=== PATIENT | female | born 1975 | race Caucasian/White ===

== ENCOUNTER 2016-12-09 22:01 | Emergency (ER) | payer OTHER ==
[~2016-12-09] VITALS: Ht 152.4 cm; Wt 87.1 kg
[2016-12-09] MEDS ORDERED: ALBU1.25 INH (22:12)
[2016-12-09] MEDS ORDERED: PROA1AER INH (22:12)
[2016-12-09] MEDS ORDERED: NAPROXEN 250 MG TAB PO ONE (22:45)
[2016-12-09] MEDS ORDERED: NAPR500T PO (23:33)
[2016-12-09 23:40] VITALS: BP 130/76
[2016-12-09] MEDS ORDERED: NORCO 5/325MG TABLET (BULK FOR ED) PO ONE (23:45)
--- NOTE | 2016-12-10 07:59 | REP ---
Clinical: Trauma. Technique: AP, lateral, bilateral oblique views left foot . Findings: The osseous structures and joint spaces are intact and normal. There is no evidence for acute fracture or dislocation. Surrounding soft tissues are unremarkable. No subcutaneous emphysema or radiodense foreign body. Impression: Normal examination. No acute fracture or dislocation. Signed by Parveen Narvaez MD 12/10/2016 07:50 A
--- NOTE | 2016-12-10 08:01 | REP ---
Clinical: Trauma. Technique: AP, lateral, bilateral oblique views of the left ankle. Findings: Mild swelling is suggested. No obvious acute fracture or dislocation. Joint spaces and ankle mortise are intact. Impression: Mild swelling. No acute fracture. Signed by Parveen Narvaez MD 12/10/2016 07:52 A
== END 2016-12-10 00:10 | disposition home or self-care (01) ==
LOC: M ED 22:50
DX: S93.402A Sprain of unspecified ligament of left ankle, initial encounter (principal); S93.602A Unspecified sprain of left foot, initial encounter; W23.0XXA Caught, crushed, jammed, or pinched between moving objects, initial encounter; Y92.019 Unspecified place in single-family (private) house as the place of occurrence of the external cause; Y93.01 Activity, walking, marching and hiking; Y99.8 Other external cause status; Z88.6 Allergy status to analgesic agent

== ENCOUNTER 2017-03-29 17:58 | Emergency (ER) | payer OTHER ==
[~2017-03-29] VITALS: Ht 152.4 cm; Wt 87.9 kg
[~2017-03-29 17:58] MED LIST: ALBU1.25 INH; NAPR500T PO; PROAAER10 INH
[2017-03-29] MEDS ORDERED: CYCLOBENZAPRINE 10 MG TAB PO ONE (19:45)
[2017-03-29] MEDS ORDERED: KETOROLAC 60 MG/2 ML VIAL (J1885) IM ONE (19:45)
[2017-03-29] MEDS ORDERED: CYCL10TA PO (20:12)
[2017-03-29] MEDS ORDERED: NAPR500T6 PO (20:12)
[2017-03-29 20:17] VITALS: BP 112/56
--- NOTE | 2017-03-30 06:53 | REP ---
Right pelvis three views There is no acute fracture or dislocation. The joint spaces are normal in appearance. IMPRESSION: There is no acute fracture or dislocation. Signed by Alok Mcintosh MD 03/30/2017 08:14 A
== END 2017-03-29 20:18 | disposition home or self-care (01) ==
LOC: M ED 17:58
DX: R60.0 Localized edema (principal); S76.001A Unspecified injury of muscle, fascia and tendon of right hip, initial encounter; X50.9XXA Other and unspecified overexertion or strenuous movements or postures, initial encounter; Y92.019 Unspecified place in single-family (private) house as the place of occurrence of the external cause; Y93.89 Activity, other specified; Y99.8 Other external cause status; J45.909 Unspecified asthma, uncomplicated; F17.200 Nicotine dependence, unspecified, uncomplicated
CPT/HCPCS: 73502; 96372; 99282; J1885

== ENCOUNTER → 2017-04-29 | Outpatient (CLI) | payer OTHER ==
[~2017-04-29] MED LIST changes: +CYCL10TA PO; +NAPR500T6 PO
--- NOTE | 2017-05-03 12:05 | SLEEPCENT ---
DATE OF STUDY: 04/29/2017 ORDERED BY: Yue Oakes NP Nocturnal polysomnography was performed for evaluation of sleep apnea syndrome symptoms in this patient with a history of excessive somnolence and morning headaches and nonrestorative sleep. 9 hours and 4 minutes of data were reviewed. There were 415 minutes of sleep identified. Sleep latency was mildly prolonged at 18 minutes. Rapid eye movement (REM) latency more so prolonged at 164 minutes. Sleep architecture showed severe fragmentation. Progression was maintained. There were 3 REM periods appreciated. Overall sleep efficiency was 77.9%. EKG showed a sinus rhythm with premature ventricular contractions (PVCs), average heart rate 60 beats per minute. Rate variability was seen surrounding respiratory events. Rate ranged 42-80 beats per minute. EEG showed fairly normal wave forms for awake and sleep. No focal events were identified. There 99 respiratory events identified of 10 seconds in duration or greater for an apnea-hypopnea index of 14.3. The events were primarily obstructive, more frequent but not exclusive to supine posture, or associated with arousals 11 times per hour and oxygen desaturations into the low 80s. There was some activity in the limb leads as well, but limb movement arousals were few. Remaining measures of sleep physiology were reasonably normal. IMPRESSION: Obstructive sleep apnea syndrome (G47.33), apnea-hypopnea index 14.3. RECOMMENDATION: The patient should be encouraged to return to the sleep disorder center for pressure therapy in the interim. Alcohol and sedative avoidance should be practiced and caution exercised during the operation of motor vehicles.
== END ==
LOC: M SLEEP 19:24
PROVIDERS: ATTEND Nurse Practitioner Adult Health
DX: G47.33 Obstructive sleep apnea (adult) (pediatric) (principal)

== ENCOUNTER → 2017-05-17 | Outpatient (CLI) | payer OTHER ==
--- NOTE | 2017-05-21 09:11 | SLEEPCENT ---
DATE OF STUDY: 05/17/2017 ORDERING PROVIDER: Yue Oakes NP Nocturnal polysomnography was performed for the titration of pressure therapy in this patient with obstructive sleep apnea syndrome, apnea-hypopnea index of 14. For testing, a ResMed AirTouch F20 full face mask of medium size was used. 4 cm of water pressure were applied to the circuit, and the lights were extinguished. 7 hours and 56 minutes of data were reviewed. There were 418 minutes of sleep identified. Sleep latency was prolonged at 26 minutes. Rapid eye movement (REM) sleep was normal at 87 minutes. Sleep architecture was good with four REM periods appreciated. Overall sleep efficiency was 88.9%. The patient's electrocardiogram (EKG) showed a sinus rhythm with an average heart rate of 58 beats per minute. Electroencephalogram (EEG) showed normal waveforms for awake and sleep. Respiratory events were best palliated with continuous positive airway pressure (CPAP) at a pressure of +7. Minimal snoring was noted despite pressure therapy. There was some limb activity, but arousals from limb events were few. IMPRESSION: Obstructive sleep apnea syndrome (G47.33). RECOMMENDATION: Nightly use of pressure therapy 7 cm of water.
== END ==
LOC: M SLEEP 20:00
PROVIDERS: ATTEND Nurse Practitioner Adult Health
DX: G47.33 Obstructive sleep apnea (adult) (pediatric) (principal)

== ENCOUNTER 2018-08-18 20:45 | Emergency (ER) | payer OTHER ==
[2018-08-18 22:29] LABS: BASO # 0.1 10^3/uL (0.0-0.2); BASO % 0.9 % (0.0-1.0); EOS # 0.9 10^3/uL (0.0-0.50); EOS % 9.6 % (0.0-3.0); HEMATOCRIT 45.2 % (36.0-47.0); HEMOGLOBIN 15.1 g/dl (12.0-15.5); IMMATURE GRANULOCYTE % 0.5 % (0-3.0); LYMPH # 2.2 10^3/uL (1.5-4.5); LYMPH % 23.4 % (24.0-44.0); MEAN CORPUSCULAR HEMOGLOBIN 29.9 pg (27.0-33.0); MEAN CORPUSCULAR HGB CONC 33.4 g/dl (32.0-36.5); MEAN CORPUSCULAR VOLUME 89.5 fl (80.0-96.0); MONO # 0.7 10^3/uL (0.0-0.8); MONO % 7.3 % (0.0-5.0); NEUTROPHILS # 5.4 10^3/uL (1.8-7.7); NEUTROPHILS % 58.3 % (36.0-66.0); PLATELET COUNT, AUTOMATED 301 10^3/uL (150-450); RED BLOOD COUNT 5.05 10^6/uL (4.00-5.40); RED CELL DISTRIBUTION WIDTH 12.5 % (11.5-14.5); WHITE BLOOD COUNT 9.3 10^3/uL (4.0-10.0)
[2018-08-18 22:40] LABS: INR 0.89; PROTHROMBIN TIME 12.1 SECONDS (12.1-14.4)
[2018-08-18 22:41] LABS: PARTIAL THROMBOPLASTIN TIME 30.3 SECONDS (25.4-37.6)
[2018-08-18 22:43] LABS: D-DIMER QUANT 296.24 ng/ml (<500)
[2018-08-18 22:52] LABS: CONTROL LINE HCG INT CTR LINE PRESENT; HCG, SERUM QUALITATIVE NEGATIVE (NEGATIVE)
[2018-08-19] LABS: ANION GAP 8 MEQ/L (8-16); BLOOD UREA NITROGEN 19 MG/DL (7-18); CALCIUM LEVEL 8.5 MG/DL (8.5-10.1); CARBON DIOXIDE LEVEL 25 MEQ/L (21-32); CHLORIDE LEVEL 105 MEQ/L (98-107); CREATININE FOR GFR 0.76 MG/DL (0.55-1.30); GLOMERULAR FILTRATION RATE > 60.0 (>58); GLUCOSE, FASTING 84 MG/DL (70-100); SODIUM LEVEL 138 MEQ/L (136-145)
== END 2018-08-19 00:30 | disposition home or self-care (01) ==
LOC: M ED 08-19 00:30
DX: R07.89 Other chest pain (principal); F17.210 Nicotine dependence, cigarettes, uncomplicated; R00.1 Bradycardia, unspecified; M79.662 Pain in left lower leg; G35 Multiple sclerosis; J45.909 Unspecified asthma, uncomplicated; J44.9 Chronic obstructive pulmonary disease, unspecified; Z91.030 Bee allergy status; Z88.6 Allergy status to analgesic agent
CPT/HCPCS: 93005

== ENCOUNTER 2019-05-24 13:17 | Emergency (ER) | payer OTHER ==
[~2019-05-24] VITALS: Ht 152.4 cm; Wt 89.6 kg
[~2019-05-24 13:17] MED LIST changes: +IBUP80TA PO; +NAPR-837 PO; -NAPR500T PO
[2019-05-24] MEDS ORDERED: CYCLOBENZAPRINE 10 MG TAB PO ONE (14:30)
[2019-05-24] MEDS ORDERED: KETOROLAC TROMETHAMINE 10 MG TAB PO ONE (14:30)
[2019-05-24] MEDS ORDERED: CYCL10TA PO (14:31)
[2019-05-24] MEDS ORDERED: MOBI4TAB PO (14:31)
[2019-05-24 14:50] VITALS: BP 128/77
== END 2019-05-24 14:52 | disposition home or self-care (01) ==
LOC: M ED 13:17
DX: M54.41 Lumbago with sciatica, right side (principal); J45.909 Unspecified asthma, uncomplicated; J44.9 Chronic obstructive pulmonary disease, unspecified; R32 Unspecified urinary incontinence; F17.210 Nicotine dependence, cigarettes, uncomplicated; Z79.1 Long term (current) use of non-steroidal anti-inflammatories (NSAID); Z88.6 Allergy status to analgesic agent; Z91.030 Bee allergy status

== ENCOUNTER 2020-09-09 12:38 | Emergency (ER) | payer OTHER ==
[~2020-09-09] VITALS: Ht 152.4 cm; Wt 91.4 kg
[~2020-09-09 12:38] MED LIST changes: +CYCL-707 PO; -CYCL10TA PO; +MOBI4TAB PO
[2020-09-09 13:39] LABS: BLOOD UREA NITROGEN 12 MG/DL (7-18); CARBON DIOXIDE LEVEL 27 MEQ/L (21-32); CHLORIDE LEVEL 106 MEQ/L (98-107); CK-MB VALUE MASS 1.3 NG/ML (<3.6); CPK CREATINE PHOSPHOKINASE 102 U/L (26-192); CREATININE FOR GFR 0.83 MG/DL (0.55-1.30); GLOMERULAR FILTRATION RATE > 60.0 (>58); GLUCOSE, FASTING 89 MG/DL (70-100); MB/CK RELATIVE INDEX 1.27 (< OR =4); POTASSIUM SERUM 4.5 MEQ/L (3.5-5.1); SODIUM LEVEL 139 MEQ/L (136-145); TROPONIN I < 0.02 NG/ML (< 0.10)
[2020-09-09] MEDS ORDERED: ISOVUE-370 76% 100ML VIAL As Ordered ONE (13:43)
--- NOTE | 2020-09-09 13:45 | REP ---
INDICATION: CHEST PAIN COMPARISON: 09/01/2016 TECHNIQUE: Portable AP view of the chest FINDINGS: The mediastinum and cardiac silhouette are stable and within normal limits for portable technique. The lung morrow are clear without acute consolidation, effusion, or pneumothorax. Skeletal structures are intact. IMPRESSION: No acute cardiopulmonary process appreciated. <Electronically signed by Parveen Narvaez > 09/09/20 [id number]
--- NOTE | 2020-09-09 14:21 | REP ---
INDICATION: sob COMPARISON: None. TECHNIQUE: Axial contrast enhanced images from the thoracic inlet to the upper abdomen using pulmonary embolus technique with multiplanar re-formations. 75 ml Isovue 370 intravenous contrast material administered without complication. This CT examination was performed using the following dose reduction techniques: Automated exposure control, adjustment of mA and/or kv according to the patient's size, and use of iterative reconstruction technique. FINDINGS: Satisfactory enhancement of the pulmonary vasculature is achieved and no filling defects are identified to suggest pulmonary embolus. Further evaluation of the mediastinum demonstrates normal thoracic aorta, heart and pericardium. The bilateral lung morrow are well aerated and clear without consolidation pleural effusion or pneumothorax. Very minimal posterior basilar dependent changes are noted. Tracheobronchial tree is patent. No nodule or mass lesion is identified. No adenopathy noted. Surrounding musculoskeletal structures intact IMPRESSION: No evidence for pulmonary embolus. No acute mediastinal or pleural parenchymal process. <Electronically signed by Parveen Narvaez > 09/09/20 [id number]
[2020-09-09 14:24] LABS: BASO # 0.1 10^3/uL (0.0-0.2); BASO % 0.9 % (0.0-1.0); EOS # 0.5 10^3/uL (0.0-0.5); EOS % 5.9 % (0.0-3.0); HEMOGLOBIN 14.9 g/dl (12.0-15.5); LYMPH % 24.5 % (24.0-44.0); MEAN CORPUSCULAR HEMOGLOBIN 28.7 pg (27.0-33.0); MEAN CORPUSCULAR HGB CONC 32.4 g/dl (32.0-36.5); MEAN CORPUSCULAR VOLUME 88.5 fl (80.0-96.0); MONO # 0.5 10^3/uL (0.0-0.8); MONO % 5.8 % (0.0-5.0); NEUTROPHILS % 62.5 % (36.0-66.0); PLATELET COUNT, AUTOMATED 361 10^3/uL (150-450)
[2020-09-09 14:30] LABS: INR 0.91; PROTHROMBIN TIME 12.4 SECONDS (12.5-14.3)
[2020-09-09 14:32] LABS: ALBUMIN 3.7 GM/DL (3.2-5.2); ALT/SGPT 28 U/L (12-78); BILIRUBIN,DIRECT 0.1 MG/DL (0.0-0.2); BILIRUBIN,TOTAL 0.3 MG/DL (0.2-1.0); LIPASE 106 U/L (73-393); TOTAL PROTEIN 7.6 GM/DL (6.4-8.2)
[2020-09-09 14:39] VITALS: BP 137/74
--- NOTE | 2020-09-10 05:36 | ECGEPIP ---
[facility] - ED Test Date: 2020-09-09 Pat Name: KELLY LERNER Department: Room: - Gender: Female [employer] Designer: olga : 1975 Requested By: LOU POOL Order Number: [id number] Reading MD: Alejandro Singer Measurements Intervals [place] Rate: 65 P: 50 VT: 138 QRS: 4 QRSD: 82 T: 51 QT: 366 QTc: 382 Interpretive Statements SINUS RHYTHM POOR R WAVE PROGRESSION NONSPECIFIC T-WAVE ABNORMALITY SIMILAR TO 08/18/18 Electronically Signed on 09-10-2020 5:36:17 EST by Alejandro Singer
== END 2020-09-09 14:53 | disposition home or self-care (01) ==
LOC: M ED 12:38
DX: R09.1 Pleurisy (principal); J44.9 Chronic obstructive pulmonary disease, unspecified; F17.200 Nicotine dependence, unspecified, uncomplicated; Z79.899 Other long term (current) drug therapy
CPT/HCPCS: 36415; 71045; 71275; 80047; 80048; 80076; 82550; 82553; 83690; 85025; 85610; 93005; 99284; Q9967

== ENCOUNTER 2021-04-27 21:21 | Emergency (ER) | payer OTHER ==
[~2021-04-27] VITALS: Ht 152.4 cm; Wt 95.6 kg
[2021-04-27] MEDS ORDERED: NS 1,000 ML IV ONE (22:35)
[2021-04-27 23:09] LABS: BASO # 0.1 10^3/uL (0.0-0.2); BASO % 0.8 % (0.0-1.0); EOS # 0.6 10^3/uL (0.0-0.5); EOS % 5.6 % (0.0-3.0); HEMATOCRIT 41.9 % (36.0-47.0); LYMPH # 2.4 10^3/uL (1.5-5.0); LYMPH % 23.3 % (24.0-44.0); MEAN CORPUSCULAR HEMOGLOBIN 29.7 pg (27.0-33.0); MEAN CORPUSCULAR HGB CONC 33.4 g/dl (32.0-36.5); MONO # 0.9 10^3/uL (0.0-0.8); MONO % 8.4 % (2.0-8.0); NEUTROPHILS # 6.4 10^3/uL (1.5-8.5); NEUTROPHILS % 61.3 % (36.0-66.0); PLATELET COUNT, AUTOMATED 298 10^3/uL (150-450); RED BLOOD COUNT 4.71 10^6/uL (4.00-5.40); WHITE BLOOD COUNT 10.4 10^3/uL (4.0-10.0)
[2021-04-27 23:24] LABS: INR 0.95; PARTIAL THROMBOPLASTIN TIME 29.1 SECONDS (25.9-37.0); PROTHROMBIN TIME 13.1 SECONDS (12.7-14.5)
[2021-04-27 23:39] LABS: ALBUMIN 3.6 GM/DL (3.2-5.2); BILIRUBIN,DIRECT 0.1 MG/DL (0.0-0.2); BILIRUBIN,TOTAL 0.4 MG/DL (0.2-1.0); TOTAL PROTEIN 7.1 GM/DL (6.4-8.2)
[2021-04-27] MEDS ORDERED: ISOVUE-370 76% 100ML VIAL As Ordered ONE (23:47)
[2021-04-28] MEDS ORDERED: POTASSIUM CHLORIDE 10 MEQ SR TABLET PO ONE (00:10)
--- NOTE | 2021-04-28 00:52 | REPVR ---
PROCEDURE INFORMATION: Exam: CT Abdomen And Pelvis With Contrast Exam date and time: 04/27/2021 11:52 PM Age: 45 years old Clinical indication: Abdominal pain; Localized; Left lower quadrant (llq); Additional info: Llq pain/rectal bleeding TECHNIQUE: Imaging protocol: Computed tomography of the abdomen and pelvis with contrast. Radiation optimization: All CT scans at this facility use at least one of these dose optimization techniques: automated exposure control; mA and/or kV adjustment per patient size (includes targeted exams where dose is matched to clinical indication); or iterative reconstruction. Contrast material: ISOVUE 370; Contrast volume: 100 ml; Contrast route: INTRAVENOUS (IV); COMPARISON: CT ABD PELVIS WITH CONTRAST 03/04/2016 5:46 AM FINDINGS: Liver: Normal. No mass. Gallbladder and bile ducts: Status post cholecystectomy. No biliary ductal dilatation. Pancreas: Normal. No ductal dilation. Spleen: Normal. No splenomegaly. Adrenal glands: Normal. No mass. Kidneys and ureters: Normal. No hydronephrosis. Stomach and bowel: Unremarkable. No obstruction. No mucosal thickening. Negative for colonic diverticulitis. Appendix: Appendix is normal. Intraperitoneal space: Unremarkable. No free air. No significant fluid collection. Vasculature: Unremarkable. No abdominal aortic aneurysm. Lymph nodes: Unremarkable. No enlarged lymph nodes. Urinary bladder: Bladder is decompressed. Reproductive: Uterus is normal. Bones/joints: Mild degenerative spine. No acute fracture. Mild degenerative changes of the hips bilaterally. Soft tissues: Small umbilical hernia containing fat. There is no evidence of strangulation. IMPRESSION: 1. No CT findings to suggest source of left lower quadrant pain. 2. Bladder is decompressed. Evaluation of bladder is limited. Electronically signed by: Krystyna Baez On 04/28/2021 00:52:09 AM
[2021-04-28] MEDS ORDERED: PROC1CRE TOP (01:26)
[2021-04-28 01:43] VITALS: BP 132/71
== END 2021-04-28 01:44 | disposition home or self-care (01) ==
LOC: M ED 21:21
DX: K64.4 Residual hemorrhoidal skin tags (principal); H46.9 Unspecified optic neuritis; J44.9 Chronic obstructive pulmonary disease, unspecified; G47.33 Obstructive sleep apnea (adult) (pediatric); G35 Multiple sclerosis; F17.210 Nicotine dependence, cigarettes, uncomplicated; Z79.899 Other long term (current) drug therapy; Z98.890 Other specified postprocedural states; Z88.8 Allergy status to other drugs, medicaments and biological substances; Z80.0 Family history of malignant neoplasm of digestive organs; Z91.048 Other nonmedicinal substance allergy status
CPT/HCPCS: 74177; 80047; 80076; 83690; 85025; 85610; 85730; 86850; 86900; 86901; 87505; 96360; 96361; 99284; Q9967

== ENCOUNTER 2021-07-08 17:07 | Emergency (ER) | payer OTHER ==
[~2021-07-08] VITALS: Ht 152.4 cm; Wt 99.1 kg
[~2021-07-08 17:07] MED LIST changes: +PROC1CRE TOP
--- OUTSIDE RECORDS SUMMARY | 2021-07-08 17:13 | CCD ---
Clinical Summary - [facility] Created on: 05/22/2021 Leah Su External Reference #: [id number] : 1975 Sex: Female Author Author [employer] Organization [facility] Address [address] [place] [address] Phone Care Team Providers Care [employer] Rep[employer]r Name Role Phone Alan NAJERA, Ilir Unavailable [phone] Dragan BALLESTEROS, Lianet I Unavailable [phone] [place], Imaging Unavailable [phone] Charli Mustafa MD Unavailable [phone] Annelise NAJERA, Enrique Unavailable [phone] [facility] &, [facility] Unavailable [phone] Migel Angela MD Unavailable [phone] [facility], Radiology Unavailable [phone] Reason for Referral No Reason for Referral Recorded Reason for Visit and Chief Complaint Chart Update Problems Includes: Problems addressed during this encounter and other active Problems Current Visit Onset Date - Time Resolved Date - Time Provider C ondition Status Hiatal Hernia 05/22/2021 - 3:02PM Lianet Archibald NP Active Note: per EGD report 05/22/21 Past Visits Onset Date - Time Resolved Date - Time Provider Co ndition Status Edema 03/18/2021 - 10:52AM Lianet Archibald NP Active Note: dependent edema ankles Pleurisy 09/19/2020 - 2:51PM New Fox MD A ctive Note: - L lung, diagnosed Tendonitis Rotator Cuff 03/18/2019 - 12:00AM Donnareynaldo Dc DO Active Venous Insufficiency 03/18/2019 - 12:00AM Donnareynaldo Dc DO Active Intervertebral Disc Degeneration 01/31/2019 - 12:00AM Lianet Archibald NP Active Joint Derangement Pelvis / Hip 10/08/2018 - 12:00AM John GUZMAN Active Note: Unchanged Urinary Incontinence 10/08/2018 - 12:00AM Jenae GUZMAN Active Note: Unchanged Constipation 10/08/2018 - 12:00AM Jenae Lincoln ctive Note: Unchanged Lumbago 10/08/2018 - 12:00AM Jenae Lincoln ctive Note: Unchanged Multiple Sclerosis 10/08/2018 - 12:00AM Jenae GUZMAN Active Note: Unchanged Lumbar Radiculopathy 09/15/2018 - 12:00AM Lianet I Ca rnes HEMOTHERAPIST Active Vitamin D Deficiency 06/14/2018 - 12:00AM New brooke MD Active Note: Unchanged - Vitamin D level of 26 in May 2018. Impaired Fasting Glucose 06/09/2018 - 12:00AM New Fox MD Active Optic Neuritis 06/03/2018 - 12:00AM New Quigley Active Note: Right eye, May 2018 Internal Derangement Left Knee 10/14/2017 - 12:00AM Olivier Fox MD Active Atopic Dermatitis 05/21/2017 - 12:00AM New becerra MD Active Note: Unchanged Organic Sleep Apnea Obstructive 02/17/2017 - 12:00AM G zach Fox MD Active Note: Unchanged - Positive s leep study 29 Apr 2017. CPAP planned. Depression 02/13/2016 - 12:00AM Marva Lala HEMOTHERAPIST Act william Asthma 10/30/2015 - 12:00AM Marva Lala HEMOTHERAPIST Act william Essential Hypertriglyceridemia 10/30/2015 - 12:00AM Claudette Lala HEMOTHERAPIST Active Superficial Injury of Lower Limb Foreign Body 07/17/2015 - 12:00 AM Donna Dc DO Active Allergic Rhinitis 04/17/2014 - 12:00AM Marva Lala N P Active Note: Unchanged MENORRHAGIA PERIMENOPAUSAL 01/18/2014 - 12:00AM Jose Juan Packer MD Active Note: Unchanged Menses Abnormal 01/18/2014 - 12:00AM Jose Juan Packer MD Ac tive Note: Unchanged Nicotine Dependence 08/21/2012 - 12:00AM Lianet I Car davion HEMOTHERAPIST Active Note: Unchanged - 1/2 to 1 p pd. Esophageal Reflux 05/18/2012 - 12:00AM New becerra MD Active Obesity 05/18/2012 - 12:00ANAT Fox MD Active Note: 08/25 discussed 500 Ca l = 1 lb; 200 Quirino/day excess; goal 10-20 lb loss then sustain Plantar Fasciitis 05/18/2012 - 12:00AM Donna Dc DO Active Plan of Treatment Future Appointments Date Time Location Provider [facility] 09/18/2021 10:30AM [facility] Lianet Archibald NP Assessments Includes: Assessments from this encounterNo Assessments Recorded Instructions Includes: Instructions from this encounterNo Instructions Recorded Medical Equipment - Implanted Devices Includes: Current DevicesNo Medical Equipment Recorded Medications Includes: Medications discussed during this encounter and other current Medicati ons Discontinued / Stopped on this date [facility] Gastroenterology & on 03/22/2021 Omeprazole 40 MG Oral Capsule Delayed Release Provider: [facility] Gastroenterology & Diagnosis: Current Medications (continue as prescribed) Pantoprazole Sodium 40 MG Oral Tablet Delayed Release 2020 Provider: [facility] Gastroenterology & Diagnosis: Advair Diskus 100-50 MCG/DOSE Inhalation Aerosol Powde r Breath Activated 03/19/2021 - 09/15/2021 Provider: Lianet Archibald NP Diagnosis: Moderate persistent asthma, uncomplicated 1 puff BID and rinse after use Advair Diskus 100-50 MCG/DOSE Inhalation Aerosol Powde r Breath Activated 03/19/2021 Provider: Diagnosis: Moderate persistent asthma, uncomplicated 1 puff BID and rinse after use ProAir HFA 108 (90 Base) MCG/ACT Inhalation Aerosol Solution 03/18/2021 Provider: Lianet Archibald HEMOTHERAPIST Diagnosis: 2 puffs 4 times a day as needed for shortness of breath hydroCHLOROthiazide 12.5 MG Oral Tablet 03/18/2021 Provider: Lianet Archibald HEMOTHERAPIST Diagnosis: once a day [facility] Milk of Magnesia 400 MG/5ML Oral Suspension 12/31/2020 Provider: Diagnosis: EpiPen 2-Rufus 0.3 MG/0.3ML Injection Solution Auto-injector 0 12/31/2020 Provider: Lianet Archibald HEMOTHERAPIST Diagnosis: as directed Naproxen 500 MG Oral Tablet 09/19/2020 Provider: Neville GRIMMP Diagnosis: Pleurisy twice a day Montelukast Sodium 10 MG Oral Tablet 07/17/2020 Pro vider: New Fox MD Diagnosis: once a day Albuterol Sulfate 1.25MG/3ML Inhalation Nebulization solutio n 01/03/2019 Provider: New Fox MD Diagnosis: 1 vial per nebulizer inhaled 4 times per day as needed Medications Administered Includes: Administered Medications from this encounterNo Administered Medications Recorded Vital Signs Includes: Vital Signs from this encounterNo Vital Signs Recorded For Specified Dates Results Includes: Results discussed during this encounterNo Results Recorded For Specified Dates History of Present Illness Includes: History of Present Illness from this encounterNo History of Present Illness Recorded Social History No Social History Recorded - Smoking Status Unknown Procedures and Surgical History Includes: Procedures from this encounterNo Procedures For Specified Dates. No Surgical History Recorded Medical History Includes: Medical History addressed during this encounter Description Last Updated Colon polyps 05/22/2021 Hemorrhoids 05/22/2021 Family History Includes: Family History addressed during this encounterNo Family History Recorded Review of Systems Includes: Review of Systems from this encounterNo Review of Systems Recorded Mental Status Includes: Mental Status from this encounterNo Mental Status Recorded Functional Status Includes: Functional Status from this encounterNo Functional Status Recorded Physical Exam Includes: Physical Exam from this encounterNo Physical Exam Recorded Immunizations Includes: Immunizations addressed during this encounterNo Immunizations Recorded Allergies Includes: Active Allergies Substance Type Reaction Onset Date - Time Resolved Date - Ti me Status Bee Stings Allergy Asthma, Shortness of Breath 05/18/2012 - 12:00A M Active Aspirin Allergy vomiting 05/18/2012 - 12:00AM Acti ve Encounters Encounter Provider Location Date Check-In Time Check-Out Time D iagnosis Chart Update Lianet Archibald HEMOTHERAPIST 05/22/2021 2:50PM 11:59P M Insurance Includes: Active Insurance Policies Plan Name Member ID Group # Subscriber Relationship Effective Da tory 1 - Kp [id number] Leah J Su Self 2015 - Unknown 2 - [employer] Managed Medicaid [id number] Leah J Sosa ett Self 10/15/2015 - Unknown Advance Directives Includes: Current Advance Directives Directive Pat Aware Third Alliance Party Effective Date Reviewed Status RHIO Yes 12/14/2012 Current and Ve rified Note: 2-1- packet given Pt Bill of Rights, Priv Prac, Ad Dir Yes 12/31/2020 Current and Verified Note: Pt declined AD packet Ebola Screening Performed Yes 03/18/2021 Current and Verified Note: Within the last month, have you traveled outside of the [place]? - NO Health Concerns Includes: Health Concerns addressed during this encounterNo Active Health Concerns Recorded Goals Includes: Goals addressed during this encounterNo Active Goals Recorded Interventions Includes: Interventions addressed during this encounterNo Interventions Recorded Evaluations & Outcomes Includes: Evaluations & Outcomes addressed during this encounterNo Outcomes Recorded
--- OUTSIDE RECORDS SUMMARY | 2021-07-08 17:13 | CCD ---
Author Organization Unknown Address [address] [place] [address] Phone [phone] Care Team Providers Care Medical Transcription Editor Name Role Phone DAGO ZUÑIGA MD 3 [phone] Allergies Code Code System Name Reaction Severity Status Onset 1191 RxNorm Aspirin Vomiting Moderate Active Medications Name Status Start Date Stop Date albuterol sulfate 1.25 mg/3 mL solution for nebulization as needed Completed 08/23/2019 09/05/2020 albuterol sulfate 2.5 mg/3 mL (0.083 %) solution for nebulizatio n Completed 09/05/2020 albuterol sulfate HFA 90 mcg/actuation aerosol inhaler Active Not available baclofen 10 mg tablet Completed 12/03/2020 benzonatate 100 mg capsule Take 1 capsule 3 times a day by oral route. Completed 12/03/2020 ciprofloxacin 250 mg tablet Completed 08/14 clotrimazole 1 % topical cream Completed 10/24/2018 cyclobenzaprine 10 mg tablet TAKE ONE TABLET BY MOUTH THREE TIMES A DAY FOR MUSCLE SPASMS Active Not available docusate sodium 100 mg capsule Completed 10/24/2018 duloxetine 30 mg capsule,delayed release Completed 09/05/2020 duloxetine 60 mg capsule,delayed release TAKE ONE CAPSULE BY MOUTH EVERY DAY Completed epinephrine 0.3 mg/0.3 mL injection, aut o-injector USE DIRECTED Active Not available famotidine 40 mg tablet Active Not avai lable Flovent HFA 110 mcg/actuation aerosol in haler as needed Completed 12/03/2020 fluticasone 100 mcg-salmeterol 50 mcg/do se blistr powdr for inhalation INHALE ONE PUFF BY MOUTH TWICE A DAY RINSE MOUTH AFTER USE Active Not available fluticasone propionate 50 mcg/actuation nasal spray,suspension C ompleted 12/03/2020 gabapentin 300 mg capsule Completed 2019 GaviLyte-G 236 gram-22.74 gram-6.74 gram -5.86 gram oral solution USE DIRECTED BY [facility] Active Not available hydrochlorothiazide 12.5 mg capsule TAKE ONE CAPSULE BY MOUTH EVERY DAY Active Not available hydrocortisone 1 % topical cream with pe rineal applicator APPLY RECTALLY ONCE DAILY DIRECTED Active N ot available ibuprofen 800 mg tablet TAKE ONE TABLET BY MOUTH THREE TIMES A DAY Completed 12/03/2020 ketorolac 10 mg tablet Completed 9 Lidocaine Viscous 2 % mucosal solution Completed 12/03/2020 loratadine 10 mg tablet Completed 09/05/20 20 magnesium oxide 400 mg (241.3 mg magnesium) tablet Active Not available meloxicam 15 mg tablet Completed 9 meloxicam 7.5 mg tablet TAKE ONE TABLET BY MOUTH TWICE A DAY WITH FOOD Active Not available methocarbamol 500 mg tablet TAKE ONE TABLET BY MOUTH THREE TIMES A DAY NEEDED Completed 02/04/2021 methocarbamol 750 mg tablet TAKE ONE TABLET BY MOUTH THREE TIMES A DAY Active Not available montelukast 10 mg tablet Active Not jane ilable naproxen 500 mg tablet TAKE ONE TABLET BY MOUTH TWICE A DAY Completed nystatin 100,000 unit/mL oral suspension Active Not available omeprazole 20 mg capsule,delayed release TAKE ONE CAPSULE BY MOUTH EVERY DAY Active Not available oseltamivir 75 mg capsule twice daily Completed 12/03/2020 pantoprazole 40 mg tablet,delayed releas e TAKE ONE TABLET BY MOUTH TWICE A DAY Active No t available phenazopyridine 100 mg tablet Completed prednisone 10 mg tablet Completed 11/09/19 20 prednisone 20 mg tablet TAKE ONE TABLET BY MOUTH TWICE A DAY Completed ranitidine 300 mg tablet 1 tablet daily Completed 12/03/2020 sulfamethoxazole 800 mg-trimethoprim 160 mg tablet Completed 08/23/2019 tizanidine 4 mg tablet Completed 0 topiramate 25 mg tablet Completed 01/09/20 20 topiramate 50 mg tablet TAKE ONE TABLET BY MOUTH TWICE A DAY Completed Vitamin B-2 100 mg tablet TAKE 4 TABLETS BY MOUTH EVERY DAY Active Not a vailable Problems None recorded. Procedures Date Name Performed by Repair of Cleft Palate Information not a vailable Removal of Sebaceous Cyst Information no t available Results Lab Results Date Name Specimen Result Interpretation Description Value Range Status Address 09/21/2020 [facility] Pdf Report NOS No observation recorded. [facility]: [address] [facility], [place] 09/21/2020 SARS CoV 2 RNA (COVID-19), QL, linux admin-PCR, Respirat ory Specimen NOS Normal Sars-cov-2 negative negative Final [facility]: [address] [facility] [place] 04/20/2020 SARS CoV 2 RNA (COVID-19), QL, linux admin-PCR, Respiratory Specim en No observation recorded. [employer]: [address] [facility], [place] Past Encounters 06/10/2021 Lumbar Radiculopathy; Degeneration of Lumbar Intervertebral Disc; Displacement of Lumbar Intervertebral Disc without Myelopathy; Spondylosis without Myelopathy; Lumbosacral Spondylosis without Myelopathy; Myofascial Pain; Cervical Radiculopathy; Displacement of Cervical Intervertebral Disc without Myelopathy; Degeneration of Cervical Intervertebral Disc; Cervical Spondylosis without Myelopathy; Congenital Fusion of Spine; Inflammation of Sacroiliac Joint Mariah Vilalfuerte, SPECIAL PROCEDURES TECHNOLOGIST: [id number] [address], [place] [address], Ph. 05/02/2021 Lumbar Radiculopathy; Degeneration of Lumbar Intervertebral Disc; Displacement of Lumbar Intervertebral Disc without Myelopathy; Spondylosis without Myelopathy; Lumbosacral Spondylosis without Myelopathy; Myofascial Pain; Cervical Radiculopathy; Displacement of Cervical Intervertebral Disc without Myelopathy; Degeneration of Cervical Intervertebral Disc; Cervical Spondylosis without Myelopathy; Congenital Fusion of Spine; Inflammation of Sacroiliac Joint Mariah Villafuerte, SPECIAL PROCEDURES TECHNOLOGIST: [id number] [facility] [address], [place] [address], Ph. 03/19/2021 Lumbar Radiculopathy; Degeneration of Lumbar Intervertebral Disc; Displacement of Lumbar Intervertebral Disc without Myelopathy; Spondylosis without Myelopathy; Lumbosacral Spondylosis without Myelopathy; Myofascial Pain; Cervical Radiculopathy; Displacement of Cervical Intervertebral Disc without Myelopathy; Degeneration of Cervical Intervertebral Disc; Cervical Spondylosis without Myelopathy; Congenital Fusion of Spine; Inflammation of Sacroiliac Joint Mariah Villafuerte, SPECIAL PROCEDURES TECHNOLOGIST: [address] [address], [place] [address], Ph. 02/04/2021 Lumbar Radiculopathy; Degeneration of Lumbar Intervertebral Disc; Displacement of Lumbar Intervertebral Disc without Myelopathy; Spondylosis without Myelopathy; Lumbosacral Spondylosis without Myelopathy; Myofascial Pain; Cervical Radiculopathy; Displacement of Cervical Intervertebral Disc without Myelopathy; Degeneration of Cervical Intervertebral Disc; Cervical Spondylosis without Myelopathy; Congenital Fusion of Spine; Inflammation of Sacroiliac Joint Mariah Sabasdarinelshara Villafuerte, SPECIAL PROCEDURES TECHNOLOGIST: [address] [address], [facility] [place] [address], Ph. 12/31/2020 Lumbar Radiculopathy; Degeneration of Lumbar Intervertebral Disc; Displacement of Lumbar Intervertebral Disc without Myelopathy; Spondylosis without Myelopathy; Lumbosacral Spondylosis without Myelopathy; Myofascial Pain; Cervical Radiculopathy; Displacement of Cervical Intervertebral Disc without Myelopathy; Degeneration of Cervical Intervertebral Disc; Cervical Spondylosis without Myelopathy; Congenital Fusion of Spine; Inflammation of Sacroiliac Joint Mariah Bertrand Villafuerte, SPECIAL PROCEDURES TECHNOLOGIST: [address] [address], [place] [address], Ph. 12/03/2020 Lumbar Radiculopathy; Degeneration of Lumbar Intervertebral Disc; Displacement of Lumbar Intervertebral Disc without Myelopathy; Spondylosis without Myelopathy; Lumbosacral Spondylosis without Myelopathy; Myofascial Pain; Cervical Radiculopathy; Displacement of Cervical Intervertebral Disc without Myelopathy; Degeneration of Cervical Intervertebral Disc; Cervical Spondylosis without Myelopathy; Congenital Fusion of Spine; Inflammation of Sacroiliac Joint Mariah Sgarisshara Villafuerte, SPECIAL PROCEDURES TECHNOLOGIST: [id number] [address], [place] [address], Ph. 10/10/2020 Lumbar Radiculopathy; Degeneration of Lumbar Intervertebral Disc; Displacement of Lumbar Intervertebral Disc without Myelopathy; Spondylosis without Myelopathy; Lumbosacral Spondylosis without Myelopathy; Myofascial Pain; Cervical Radiculopathy; Displacement of Cervical Intervertebral Disc without Myelopathy; Degeneration of Cervical Intervertebral Disc; Cervical Spondylosis without Myelopathy; Congenital Fusion of Spine; Inflammation of Sacroiliac Joint Mariah Villafuerte SPECIAL PROCEDURES TECHNOLOGIST: [address] [address], Ph. 09/26/2020 Lumbar Radiculopathy; Degeneration of Lumbar Intervertebral Disc; Displacement of Lumbar Intervertebral Disc without Myelopathy; Spondylosis without Myelopathy; Lumbosacral Spondylosis without Myelopathy; Myofascial Pain; Cervical Radiculopathy; Displacement of Cervical Intervertebral Disc without Myelopathy; Degeneration of Cervical Intervertebral Disc; Cervical Spondylosis without Myelopathy; Congenital Fusion of Spine; Inflammation of Sacroiliac Joint Ilir Phillips MD: [id number] [address], Ph. 09/21/2020 Pre-surgery Testing; Viral Screening Ilir Phillips MD: [id number] [address], Ph. [phone] 09/05/2020 Lumbar Radiculopathy; Degeneration of Lumbar Intervertebral Disc; Displacement of Lumbar Intervertebral Disc without Myelopathy; Spondylosis without Myelopathy; Lumbosacral Spondylosis without Myelopathy; Myofascial Pain; Cervical Radiculopathy; Displacement of Cervical Intervertebral Disc without Myelopathy; Degeneration of Cervical Intervertebral Disc; Cervical Spondylosis without Myelopathy; Congenital Fusion of Spine; Inflammation of Sacroiliac Joint Ilir Phillips MD: [id number] [address], Ph. 06/14/2020 Lumbar Radiculopathy; Degeneration of Lumbar Intervertebral Disc; Displacement of Lumbar Intervertebral Disc without Myelopathy; Spondylosis without Myelopathy; Lumbosacral Spondylosis without Myelopathy; Myofascial Pain; Cervical Radiculopathy; Displacement of Cervical Intervertebral Disc without Myelopathy; Degeneration of Cervical Intervertebral Disc; Cervical Spondylosis without Myelopathy; Congenital Fusion of Spine; Inflammation of Sacroiliac Joint Mariah Villafuerte SPECIAL PROCEDURES TECHNOLOGIST: [id number] [address], Ph. 05/18/2020 Lumbar Radiculopathy; Degeneration of Lumbar Intervertebral Disc; Displacement of Lumbar Intervertebral Disc without Myelopathy; Spondylosis without Myelopathy; Lumbosacral Spondylosis without Myelopathy; Myofascial Pain; Cervical Radiculopathy; Displacement of Cervical Intervertebral Disc without Myelopathy; Degeneration of Cervical Intervertebral Disc; Cervical Spondylosis without Myelopathy; Congenital Fusion of Spine; Inflammation of Sacroiliac Joint Mariah Villafuerte SPECIAL PROCEDURES TECHNOLOGIST: [address] [address], Ph. 04/25/2020 Inflammation of Sacroiliac Joint; Lumbar Radiculopathy; Degeneration of Lumbar Intervertebral Disc; Displacement of Lumbar Intervertebral Disc without Myelopathy; Spondylosis without Myelopathy; Lumbosacral Spondylosis without Myelopathy; Myofascial Pain; Cervical Radiculopathy; Displacement of Cervical Intervertebral Disc without Myelopathy; Degeneration of Cervical Intervertebral Disc; Cervical Spondylosis without Myelopathy; Congenital Fusion of Spine Ilir Phillips MD: [id number] [address], Ph. 04/20/2020 Pre-surgery Testing; Viral Screening Ilir Phillips MD: [id number] [address], Ph. [phone] 01/09/2020 Lumbar Radiculopathy; Degeneration of Lumbar Intervertebral Disc; Displacement of Lumbar Intervertebral Disc without Myelopathy; Spondylosis without Myelopathy; Lumbosacral Spondylosis without Myelopathy; Myofascial Pain; Cervical Radiculopathy; Displacement of Cervical Intervertebral Disc without Myelopathy; Degeneration of Cervical Intervertebral Disc; Cervical Spondylosis without Myelopathy; Congenital Fusion of Spine; Inflammation of Sacroiliac Joint Mariah Villafuerte SPECIAL PROCEDURES TECHNOLOGIST: [id number] [address], Ph. 11/09/2019 Lumbar Radiculopathy; Degeneration of Lumbar Intervertebral Disc; Displacement of Lumbar Intervertebral Disc without Myelopathy; Spondylosis without Myelopathy; Lumbosacral Spondylosis without Myelopathy; Myofascial Pain; Cervical Radiculopathy; Displacement of Cervical Intervertebral Disc without Myelopathy; Degeneration of Cervical Intervertebral Disc; Cervical Spondylosis without Myelopathy; Congenital Fusion of Spine; Inflammation of Sacroiliac Joint Mariah Villafuerte SPECIAL PROCEDURES TECHNOLOGIST: [address] [address], Ph. 10/27/2019 Lumbosacral Spondylosis without Myelopathy; Spondylosis without Myelopathy; Degeneration of Lumbar Intervertebral Disc; Displacement of Lumbar Intervertebral Disc without Myelopathy; Myofascial Pain; Lumbar Radiculopathy Ilir Phillips MD: [id number] [address], Ph. 10/20/2019 Lumbar Radiculopathy; Degeneration of Lumbar Intervertebral Disc; Displacement of Lumbar Intervertebral Disc without Myelopathy; Spondylosis without Myelopathy; Lumbosacral Spondylosis without Myelopathy; Myofascial Pain Mariah Villafuerte SPECIAL PROCEDURES TECHNOLOGIST: [address] [address], Ph. 10/13/2019 Lumbar Radiculopathy; Degeneration of Lumbar Intervertebral Disc; Displacement of Lumbar Intervertebral Disc without Myelopathy; Spondylosis without Myelopathy; Lumbosacral Spondylosis without Myelopathy; Myofascial Pain Ilir Phillips MD: [id number] [address], Ph. 09/22/2019 Lumbar Radiculopathy; Degeneration of Lumbar Intervertebral Disc; Displacement of Lumbar Intervertebral Disc without Myelopathy; Spondylosis without Myelopathy; Lumbosacral Spondylosis without Myelopathy; Myofascial Pain Ilir Phillips MD: [id number] [address], Ph. 08/23/2019 Lumbar Radiculopathy; Degeneration of Lumbar Intervertebral Disc; Displacement of Lumbar Intervertebral Disc without Myelopathy; Spondylosis without Myelopathy; Lumbosacral Spondylosis without Myelopathy; Myofascial Pain Ilir Phillips MD: [address], [address], [place] [address], Ph. Social History Tobacco Smoking Status Heavy Tobacco Smoker (1 pack per a da y) Vaccine List Vaccine Type COVID-19, mRNA, LNP-S, PF, 100 mcg/0.5 m L dose 01/03/2021 02/04/2021 Plan of Care Reminders Provider Appointments None recorded. Lab None recorded. Referral None recorded. Procedures None recorded. Surgeries None recorded. Imaging None recorded. Vitals 06/10/2021 09:30AM FOLLOW-UP Height Blood Pressure 5 ft 136/95 mm[Hg] 05/02/2021 09:30AM FOLLOW-UP Height Blood Pressure 5 ft 147/101 mm[Hg] 03/19/2021 01:00PM FOLLOW-UP Height Weight BMI Blood Pressure 5 ft 200 lbs 39.1 kg/m2 148/94 mm[Hg] 02/04/2021 01:00PM FOLLOW-UP Height Blood Pressure 5 ft 116/74 mm[Hg] 12/31/2020 02:00PM FOLLOW-UP Height Blood Pressure 5 ft 132/90 mm[Hg] 12/03/2020 02:15PM FOLLOW-UP Height Blood Pressure 5 ft 110/73 mm[Hg] 10/10/2020 10:00AM FOLLOW-UP Height Blood Pressure 5 ft 114/82 mm[Hg] 09/05/2020 09:00AM Telehealth Height 5 ft 05/18/2020 08:30AM FOLLOW-UP Height Blood Pressure 5 ft 136/92 mm[Hg] 11/09/2019 02:00PM FOLLOW-UP Height Blood Pressure 5 ft 121/80 mm[Hg] 10/20/2019 04:15PM FOLLOW-UP Height Blood Pressure 5 ft 138/69 mm[Hg] 08/23/2019 02:00PM NEW PATIENT Height Weight BMI Blood Pressure 5 ft 200 lbs 39.1 kg/m2 116/78 mm[Hg]
--- OUTSIDE RECORDS SUMMARY | 2021-07-08 17:14 | CCD ---
Author Organization Unknown Address [address] [place] [id number] Phone [phone] Care Team Providers Care Tax Intern Name Role Phone DAGO ZUÑIGA MD 3 [phone] Allergies Code Code System Name Reaction Severity Status Onset 1191 RxNorm Aspirin Vomiting Moderate Active Medications Name Status Start Date Stop Date albuterol sulfate 1.25 mg/3 mL solution for nebulization as needed Completed 08/23/2019 09/05/2020 albuterol sulfate 2.5 mg/3 mL (0.083 %) solution for nebulizatio n Completed 09/05/2020 albuterol sulfate HFA 90 mcg/actuation a erosol inhaler INHALE TWO PUFFS BY MOUTH FOUR TIMES A DAY NEEDED FOR SHORTNESS OF BREATH Active Not available baclofen 10 mg tablet [...] 12/03/2020 gabapentin 300 mg capsule Completed 2019 hydrochlorothiazide 12.5 mg capsule TAKE ONE CAPSULE BY MOUTH EVERY DAY Active Not available hydrocortisone 1 % topical cream with perineal applicator Active Not available ibuprofen 800 mg tablet TAKE ONE TABLET BY MOUTH THREE TIMES A DAY Completed 12/03/2020 ketorolac 10 mg tablet Completed 9 Lidocaine Viscous 2 % mucosal solution Completed 12/03/2020 loratadine 10 mg tablet Completed 09/05/20 magnesium oxide 400 mg (241.3 mg magnesium) [...] 75 mg capsule twice daily Completed 12/03/2020 phenazopyridine 100 mg tablet Completed prednisone 10 [...] NOS No observation recorded. 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 [facility]: [facility] Past Encounters 05/02/2021 Lumbar Radiculopathy; Degeneration of Lumbar Intervertebral Disc; Displacement of Lumbar Intervertebral Disc without Myelopathy; Spondylosis without Myelopathy; Lumbosacral Spondylosis without Myelopathy; Myofascial Pain; Cervical Radiculopathy; Displacement of Cervical Intervertebral Disc without Myelopathy; Degeneration of Cervical Intervertebral Disc; Cervical Spondylosis without Myelopathy; Congenital Fusion of Spine; Inflammation of Sacroiliac Joint Mariah Bertrand Villafuerte, CHIEF RESOURCE OFFICER: [id number] [address], [place] [address], Ph. 03/19/2021 Lumbar Radiculopathy; Degeneration of Lumbar Intervertebral Disc; Displacement of Lumbar Intervertebral Disc without Myelopathy; Spondylosis without Myelopathy; Lumbosacral Spondylosis without Myelopathy; Myofascial Pain; Cervical Radiculopathy; Displacement of Cervical Intervertebral Disc without Myelopathy; Degeneration of Cervical Intervertebral Disc; Cervical Spondylosis without Myelopathy; Congenital Fusion of Spine; Inflammation of Sacroiliac Joint Mariahvanessa Villafuerte, CHIEF RESOURCE OFFICER: [id number] [facility], [place] [address], Ph. 02/04/2021 Lumbar Radiculopathy; Degeneration of Lumbar Intervertebral Disc; Displacement of Lumbar Intervertebral Disc without Myelopathy; Spondylosis without Myelopathy; Lumbosacral Spondylosis without Myelopathy; Myofascial Pain; Cervical Radiculopathy; Displacement of Cervical Intervertebral Disc without Myelopathy; Degeneration of Cervical Intervertebral Disc; Cervical Spondylosis without Myelopathy; Congenital Fusion of Spine; Inflammation of Sacroiliac Joint Mariah Bertrand Villafuerte, CHIEF RESOURCE OFFICER: [id number] [facility], [place] [address], Ph. 12/31/2020 Lumbar Radiculopathy; Degeneration of Lumbar Intervertebral Disc; Displacement of Lumbar Intervertebral Disc without Myelopathy; Spondylosis without Myelopathy; Lumbosacral Spondylosis without Myelopathy; Myofascial Pain; Cervical Radiculopathy; Displacement of Cervical Intervertebral Disc without Myelopathy; Degeneration of Cervical Intervertebral Disc; Cervical Spondylosis without Myelopathy; Congenital Fusion of Spine; Inflammation of Sacroiliac Joint Mariah Bertrand Villafuerte, CHIEF RESOURCE OFFICER: [id number] [address], Ph. 12/03/2020 Lumbar Radiculopathy; Degeneration of Lumbar Intervertebral Disc; Displacement of Lumbar Intervertebral Disc without Myelopathy; Spondylosis without Myelopathy; Lumbosacral Spondylosis without Myelopathy; Myofascial Pain; Cervical Radiculopathy; Displacement of Cervical Intervertebral Disc without Myelopathy; Degeneration of Cervical Intervertebral Disc; Cervical Spondylosis without Myelopathy; Congenital Fusion of Spine; Inflammation of Sacroiliac Joint Mariah Villafuerte CHIEF RESOURCE OFFICER: [id number] [address], Ph. 10/10/2020 Lumbar Radiculopathy; Degeneration of Lumbar Intervertebral Disc; Displacement of Lumbar Intervertebral Disc without Myelopathy; Spondylosis without Myelopathy; Lumbosacral Spondylosis without Myelopathy; Myofascial Pain; Cervical Radiculopathy; Displacement of Cervical Intervertebral Disc without Myelopathy; Degeneration of Cervical Intervertebral Disc; Cervical Spondylosis without Myelopathy; Congenital Fusion of Spine; Inflammation of Sacroiliac Joint Mariah Villafuerte CHIEF RESOURCE OFFICER: [id number] [address], Ph. 09/26/2020 Lumbar Radiculopathy; Degeneration of Lumbar Intervertebral Disc; Displacement of Lumbar Intervertebral Disc without Myelopathy; Spondylosis without Myelopathy; Lumbosacral Spondylosis without Myelopathy; Myofascial Pain; Cervical Radiculopathy; Displacement of Cervical Intervertebral Disc without Myelopathy; Degeneration of Cervical Intervertebral Disc; Cervical Spondylosis without Myelopathy; Congenital Fusion of Spine; Inflammation of Sacroiliac Joint Ilir Phillips MD: [id number] [address], Ph. 09/21/2020 Pre-surgery Testing; Viral Screening Ilir Phillips MD: [id number] [address], Ph. [phone] 09/05/2020 Lumbar Radiculopathy; Degeneration of Lumbar Intervertebral Disc; Displacement of Lumbar Intervertebral Disc without Myelopathy; Spondylosis without Myelopathy; Lumbosacral Spondylosis without Myelopathy; Myofascial Pain; Cervical Radiculopathy; Displacement of Cervical Intervertebral Disc without Myelopathy; Degeneration of Cervical Intervertebral Disc; Cervical Spondylosis without Myelopathy; Congenital Fusion of Spine; Inflammation of Sacroiliac Joint Ilir Phillips MD: [id number] [address], Ph. 06/14/2020 Lumbar Radiculopathy; Degeneration of Lumbar Intervertebral Disc; Displacement of Lumbar Intervertebral Disc without Myelopathy; Spondylosis without Myelopathy; Lumbosacral Spondylosis without Myelopathy; Myofascial Pain; Cervical Radiculopathy; Displacement of Cervical Intervertebral Disc without Myelopathy; Degeneration of Cervical Intervertebral Disc; Cervical Spondylosis without Myelopathy; Congenital Fusion of Spine; Inflammation of Sacroiliac Joint Mariah Villafuerte NP: [id number] [address], Ph. 05/18/2020 Lumbar Radiculopathy; Degeneration of Lumbar Intervertebral Disc; Displacement of Lumbar Intervertebral Disc without Myelopathy; Spondylosis without Myelopathy; Lumbosacral Spondylosis without Myelopathy; Myofascial Pain; Cervical Radiculopathy; Displacement of Cervical Intervertebral Disc without Myelopathy; Degeneration of Cervical Intervertebral Disc; Cervical Spondylosis without Myelopathy; Congenital Fusion of Spine; Inflammation of Sacroiliac Joint Mariah Villafuerte NP: [address] [address], [place] [address], Ph. 04/25/2020 Inflammation of Sacroiliac Joint; Lumbar Radiculopathy; Degeneration of Lumbar Intervertebral Disc; Displacement of Lumbar Intervertebral Disc without Myelopathy; Spondylosis without Myelopathy; Lumbosacral Spondylosis without Myelopathy; Myofascial Pain; Cervical Radiculopathy; Displacement of Cervical Intervertebral Disc without Myelopathy; Degeneration of Cervical Intervertebral Disc; Cervical Spondylosis without Myelopathy; Congenital Fusion of Spine Ilir Phillips MD: [id number] [address], Ph. 04/20/2020 Pre-surgery Testing; Viral Screening Ilir Phillips MD: [id number] [address], Ph. [phone] 01/09/2020 Lumbar Radiculopathy; Degeneration of Lumbar Intervertebral Disc; Displacement of Lumbar Intervertebral Disc without Myelopathy; Spondylosis without Myelopathy; Lumbosacral Spondylosis without Myelopathy; Myofascial Pain; Cervical Radiculopathy; Displacement of Cervical Intervertebral Disc without Myelopathy; Degeneration of Cervical Intervertebral Disc; Cervical Spondylosis without Myelopathy; Congenital Fusion of Spine; Inflammation of Sacroiliac Joint Mariah Villafuerte NP: [id number] [address], Ph. 11/09/2019 Lumbar Radiculopathy; Degeneration of Lumbar Intervertebral Disc; Displacement of Lumbar Intervertebral Disc without Myelopathy; Spondylosis without Myelopathy; Lumbosacral Spondylosis without Myelopathy; Myofascial Pain; Cervical Radiculopathy; Displacement of Cervical Intervertebral Disc without Myelopathy; Degeneration of Cervical Intervertebral Disc; Cervical Spondylosis without Myelopathy; Congenital Fusion of Spine; Inflammation of Sacroiliac Joint Mariah Villafuerte CHIEF RESOURCE OFFICER: [id number] [address], Ph. 10/27/2019 Lumbosacral Spondylosis without Myelopathy; Spondylosis without Myelopathy; Degeneration of Lumbar Intervertebral Disc; Displacement of Lumbar Intervertebral Disc without Myelopathy; Myofascial Pain; Lumbar Radiculopathy Ilir Phillips MD: [id number] [address], Ph. 10/20/2019 Lumbar Radiculopathy; Degeneration of Lumbar Intervertebral Disc; Displacement of Lumbar Intervertebral Disc without Myelopathy; Spondylosis without Myelopathy; Lumbosacral Spondylosis without Myelopathy; Myofascial Pain Mariah Villafuerte NP: [id number] [address], Ph. 10/13/2019 Lumbar Radiculopathy; Degeneration of Lumbar Intervertebral Disc; Displacement of Lumbar Intervertebral Disc without Myelopathy; Spondylosis without Myelopathy; Lumbosacral Spondylosis without Myelopathy; Myofascial Pain Ilir Phillips MD: [id number] [address], Ph. 09/22/2019 Lumbar Radiculopathy; Degeneration of Lumbar Intervertebral Disc; Displacement of Lumbar Intervertebral Disc without Myelopathy; Spondylosis without Myelopathy; Lumbosacral Spondylosis without Myelopathy; Myofascial Pain Ilir Phillips MD: [id number] [address], Ph. 08/23/2019 Lumbar Radiculopathy; Degeneration of Lumbar Intervertebral Disc; Displacement of Lumbar Intervertebral Disc without Myelopathy; Spondylosis without Myelopathy; Lumbosacral Spondylosis without Myelopathy; Myofascial Pain Ilir Phillips MD: [id number] [address], Ph. Social History Tobacco Smoking Status Heavy Tobacco Smoker (1 pack per a da y) Vaccine List None recorded. Plan of Care Reminders Provider Appointments None recorded. Lab None recorded. Referral None recorded. Procedures None recorded. Surgeries None recorded. Imaging None recorded. Vitals 05/02/2021 09:30AM FOLLOW-UP Height Blood Pressure 5 [...]
[2021-07-08] MEDS ORDERED: PANT40TA29 (17:41)
[2021-07-08] MEDS ORDERED: FLUT1BLS4 (17:41)
[2021-07-08] MEDS ORDERED: HYDR12CA (17:41)
--- NOTE | 2021-07-08 18:43 | REP ---
INDICATION: Rhip pain since 07/06 NKI. COMPARISON: 03/29/2017. TECHNIQUE: Two views right hip. FINDINGS: There is no evidence of acute fracture or dislocation. The right hip joint is unremarkable in appearance. A small round calcification along the greater trochanter of the proximal right femur measures approximately 7 mm and may represent a tendinous calcification. IMPRESSION: No acute fracture or dislocation. No significant arthritic change. Suspect tendinous calcification along the greater trochanter. <Electronically signed by Charli Gan > 07/08/21 [id number]
[2021-07-08] MEDS ORDERED: KETOROLAC 60MG 2ML VIAL IM ONE (19:00)
[2021-07-08 19:14] VITALS: BP 122/66
== END 2021-07-08 19:29 | disposition home or self-care (01) ==
LOC: M ED 18:53
DX: M70.61 Trochanteric bursitis, right hip (principal); J44.9 Chronic obstructive pulmonary disease, unspecified; J45.909 Unspecified asthma, uncomplicated; K21.9 Gastro-esophageal reflux disease without esophagitis; H46.9 Unspecified optic neuritis; Z88.8 Allergy status to other drugs, medicaments and biological substances; Z91.030 Bee allergy status; F17.210 Nicotine dependence, cigarettes, uncomplicated
CPT/HCPCS: 73502; 96372; 99283; J1885

== ENCOUNTER 2021-11-12 13:02 | Emergency (ER) | payer OTHER ==
[~2021-11-12 13:02] MED LIST changes: +FLUT1BLS4; +HYDR12CA; +PANT40TA29
[2021-11-12] MEDS ORDERED: FAMO40TA3 (13:14)
[2021-11-12] MEDS ORDERED: PANTOPRAZOLE 40MG VIAL (C9113 PER 1) IV ONE (15:15)
[2021-11-12] MEDS ORDERED: MORPHINE 4 MG/ML 1ML VIAL/SYRINGE (J2270) IV ONE (15:20)
[2021-11-12] MEDS ORDERED: NS 1,000 ML IV ONE (15:30)
[2021-11-12 16:00] LABS: BASO # 0.1 10^3/uL (0.0-0.2); BASO % 0.9 % (0.0-1.0); EOS # 0.9 10^3/uL (0.0-0.5); EOS % 7.6 % (0.0-3.0); HEMATOCRIT 43.8 % (36.0-47.0); HEMOGLOBIN 14.3 g/dl (12.0-15.5); LYMPH # 2.6 10^3/uL (1.5-5.0); LYMPH % 22.5 % (24.0-44.0); MEAN CORPUSCULAR HEMOGLOBIN 29.1 pg (27.0-33.0); MEAN CORPUSCULAR HGB CONC 32.6 g/dl (32.0-36.5); MEAN CORPUSCULAR VOLUME 89.2 fl (80.0-96.0); MONO # 0.8 10^3/uL (0.0-0.8); MONO % 6.8 % (2.0-8.0); NEUTROPHILS # 7.2 10^3/uL (1.5-8.5); NEUTROPHILS % 61.7 % (36.0-66.0); PLATELET COUNT, AUTOMATED 328 10^3/uL (150-450); RED BLOOD COUNT 4.91 10^6/uL (4.00-5.40); WHITE BLOOD COUNT 11.7 10^3/uL (4.0-10.0)
[2021-11-12 16:27] LABS: ALBUMIN 3.6 GM/DL (3.2-5.2); ALT/SGPT 26 U/L (12-78); BILIRUBIN,DIRECT < 0.1 MG/DL (0.0-0.2); BILIRUBIN,TOTAL 0.4 MG/DL (0.2-1.0); BLOOD UREA NITROGEN 13 MG/DL (7-18); CARBON DIOXIDE LEVEL 30 MEQ/L (21-32); CHLORIDE LEVEL 105 MEQ/L (98-107); CREATININE FOR GFR 0.76 MG/DL (0.55-1.30); GLOMERULAR FILTRATION RATE > 60.0 (>58); GLUCOSE, FASTING 77 MG/DL (70-100); LIPASE 117 U/L (73-393); POTASSIUM SERUM 4.1 MEQ/L (3.5-5.1); SODIUM LEVEL 139 MEQ/L (136-145); TOTAL PROTEIN 7.2 GM/DL (6.4-8.2)
[2021-11-12 16:35] LABS: HCG, SERUM QUALITATIVE NEGATIVE (NEGATIVE)
[2021-11-12] MEDS ORDERED: KETOROLAC 30 MG/ML 1ML VIAL IV ONE (16:50)
[2021-11-12] MEDS ORDERED: MORPHINE 2 MG/ML 1ML VIAL (J2270) IV ONE (16:50)
[2021-11-12] MEDS ORDERED: ISOVUE-370 76% 100ML VIAL As Ordered ONE (17:01)
[2021-11-12 20:35] LABS: GC DNA AMPLIFICATION NEGATIVE (NEGATIVE)
[2021-11-12 20:51] VITALS: BP 131/81
== END 2021-11-12 21:09 | disposition home or self-care (01) ==
LOC: M ED 13:02 → EDBD 13:02 → M ED 21:09
DX: R10.9 Unspecified abdominal pain (principal); J44.9 Chronic obstructive pulmonary disease, unspecified; F17.200 Nicotine dependence, unspecified, uncomplicated; Z78.0 Asymptomatic menopausal state; Z88.6 Allergy status to analgesic agent
CPT/HCPCS: 74177; 80048; 80076; 81001; 83605; 83690; 84703; 85025; 87086; 87210; 87255; 87661; 96361; 96374; 96375; 96376; 99284; C9113; J1885; J2270; Q9967

== ENCOUNTER → 2022-03-11 | Outpatient (CLI) | payer OTHER ==
[~2022-03-11] MED LIST changes: +BARIUM SULFATE 700 MG TABLET (E-Z-DISK) As Ordered ONE; +E-Z-PAQUE 96% w/w SUSP 176GM BTL As Ordered ONE; +FAMO40TA3; +VARIBAR NECTAR 40% w/v 240ML SUSP BTL As Ordered ONE; +VARIBAR PUDDING 40% w/v 230ML TUBE As Ordered ONE
== END ==
LOC: M RAD 10:48
PROVIDERS: ATTEND Student in an Organized Health Care Education/Training Program
DX: R13.10 Dysphagia, unspecified (principal)

== ENCOUNTER → 2022-04-10 | Outpatient (CLI) | payer OTHER ==
[~2022-04-10] MED LIST changes: -BARIUM SULFATE 700 MG TABLET (E-Z-DISK) As Ordered ONE; -E-Z-PAQUE 96% w/w SUSP 176GM BTL As Ordered ONE; -VARIBAR NECTAR 40% w/v 240ML SUSP BTL As Ordered ONE; -VARIBAR PUDDING 40% w/v 230ML TUBE As Ordered ONE
== END ==
LOC: M RAD 09:46
PROVIDERS: ATTEND Internal Medicine Cardiovascular Disease
DX: M79.662 Pain in left lower leg (principal)

== ENCOUNTER 2023-12-25 19:35 | Emergency (ER) | payer OTHER ==
[~2023-12-25] VITALS: Ht 152.4 cm; Wt 92.3 kg
[2023-12-25 20:47] LABS: BASO # 0.1 10^3/uL (0.0-0.2); BASO % 0.5 % (0.0-1.0); EOS # 0.4 10^3/uL (0.0-0.5); EOS % 3.1 % (0.0-3.0); HEMATOCRIT 46.7 % (36.0-47.0); HEMOGLOBIN 15.8 g/dl (12.0-15.5); LYMPH # 1.5 10^3/uL (1.5-5.0); LYMPH % 11.6 % (24.0-44.0); MEAN CORPUSCULAR HEMOGLOBIN 30.2 pg (27.0-33.0); MEAN CORPUSCULAR HGB CONC 33.8 g/dl (32.0-36.5); MEAN CORPUSCULAR VOLUME 89.1 fl (80.0-96.0); MONO # 0.6 10^3/uL (0.0-0.8); MONO % 4.5 % (2.0-8.0); NEUTROPHILS # 10.4 10^3/uL (1.5-8.5); NEUTROPHILS % 79.8 % (36.0-66.0); PLATELET COUNT, AUTOMATED 325 10^3/uL (150-450); RED BLOOD COUNT 5.24 10^6/uL (4.00-5.40)
[2023-12-25 21:17] LABS: LIPASE 33 U/L (12-53)
[2023-12-25 21:19] LABS: ALBUMIN 3.8 G/DL (3.2-5.2); ALKALINE PHOSPHATASE 129 U/L (46-116); ALT/SGPT 23 U/L (7.0-40); AST/SGOT 16 U/L (<34); BILIRUBIN,DIRECT 0.2 MG/DL (<0.4); BILIRUBIN,TOTAL 0.7 MG/DL (0.3-1.2); BLOOD UREA NITROGEN 13 MG/DL (9-23); CARBON DIOXIDE LEVEL 29 MMOL/L (20-31); CHLORIDE LEVEL 107 MMOL/L (98-107); CREATININE FOR GFR 0.72 MG/DL (0.55-1.30); GLOMERULAR FILTRATION RATE > 60.0 (>51); GLUCOSE, FASTING 98 MG/DL (60-100); POTASSIUM SERUM 3.9 MMOL/L (3.5-5.1); SODIUM LEVEL 143 MMOL/L (136-145)
[2023-12-25 22:35] VITALS: TEMP 98.3
[2023-12-25] MEDS ORDERED: KETOROLAC 30 MG/ML 1ML VIAL As Ordered ONE (23:25)
[2023-12-25] MEDS: KETOROLAC 30 MG/ML 1ML VIAL IV ONE (23:29)
[2023-12-25] MEDS ORDERED: ISOVUE-370 76% 100ML VIAL As Ordered ONE (23:32)
[2023-12-26 01:01] VITALS: BP 115/83
[2023-12-26 01:20] VITALS: O2SAT 95
== END 2023-12-26 01:20 | disposition home or self-care (01) ==
LOC: M ED 19:35
DX: R10.9 Unspecified abdominal pain (principal); I10 Essential (primary) hypertension; F17.210 Nicotine dependence, cigarettes, uncomplicated; Z88.8 Allergy status to other drugs, medicaments and biological substances; Z91.030 Bee allergy status; Z79.51 Long term (current) use of inhaled steroids; Z79.1 Long term (current) use of non-steroidal anti-inflammatories (NSAID); Z79.899 Other long term (current) drug therapy
CPT/HCPCS: 74177; 80048; 80076; 81001; 83690; 85025; 87086; 96374; 99284; J1885; Q9967